=== PATIENT | male | born 1935 | race Caucasian/White ===

== ENCOUNTER 2016-04-06 17:06 | Emergency (ER) | payer MEDICARE, OTHER ==
[2016-04-06] MEDS ORDERED: ASPIRIN 81 MG CHEW TAB ONE (17:33)
== END 2016-04-06 21:41 | disposition home or self-care (01) ==
LOC: ER 17:06
CPT/HCPCS: 36415; 70450; 71010; 80053; 82550; 83735; 84484; 85025; 85610; 85730; 93005